=== PATIENT | male | born 1965 | race Caucasian/White ===

== ENCOUNTER 2022-01-04 05:53 | Day surgery (SDC) | payer BC ==
[2021-12-31 09:26] LABS: Absolute Lymphocytes (CBC) 2.5 K/uL (0.7-4.9); Hematocrit 46.9 % (39.6-49.0); Lymphocytes % 33.9 % (15.3-44.8); MPV 7.3 fL (7.6-11.3); RBC Red Blood Cell Count 5.21 M/uL (4.33-5.43)
[2021-12-31 09:46] LABS: Potassium 4.7 mmol/L (3.5-5.1)
[2022-01-04] MEDS ORDERED: CEFAZOLIN SODIUM 1 GM/VIAL ONE (06:00)
[2022-01-04] MEDS ORDERED: NA CHLORIDE 0.9% 50 ML ONE (06:01)
[2022-01-04] MEDS ORDERED: dexAMETHasone 4 MG/ML VIAL ONE (06:35)
[2022-01-04] MEDS ORDERED: FENTANYL CITR 100 MCG/2 ML ONE (06:35)
[2022-01-04] MEDS ORDERED: propofoL 200 MG/20 ML VIAL IV ONE (06:35)
[2022-01-04] MEDS ORDERED: MIDAZOLAM HCL 2 MG/2 ML INJ ONE (06:35)
[2022-01-04] MEDS ORDERED: KETOROLAC 30 MG/ML INJ ONE (06:36)
[2022-01-04] MEDS ORDERED: MORPHINE 10 MG/ML VIAL ONE (06:36)
[2022-01-04] MEDS ORDERED: ONDANSETRON 4 MG/2 ML VIAL ONE (06:36)
[2022-01-04] MEDS ORDERED: LIDOCAINE 1% MPF 5 ML VIAL ONE (06:38)
[2022-01-04] MEDS ORDERED: GLYCOPYRROLATE 0.2 MG/ML SYR ONE (07:20)
[2022-01-04] MEDS ORDERED: HYDROMORPHONE HCL 1 MG/ML INJ ONE (08:14)
[2022-01-04 08:44] VITALS: BP 129/76; TEMP 97.6; O2SAT 97
--- NOTE | 2022-01-04 18:30 | OP ---
Date of Procedure: 01/04/2022 Surgeon: Wyatt Hurley MD Preoperative Diagnosis: Left knee pain with mechanical symptoms, probable meniscal tear or tears. Postoperative Diagnoses: Apparent tearing of the lateral meniscus, which was somewhat surprising to have a portion, which was pinning into the intercondylar notch, but it is definitely consistent with his diagnosis by MRI. He also has mild osteoarthritis of the lateral compartment. Procedure: Left knee arthroscopy with debridement of lateral meniscus. Estimated Blood Loss: Less than 10 cc. Complications: There were no complications. Pathology: No pathology specimen sent. Indications For Operation: Mr. Garrido is a 56-year-old gentleman, who unfortunately has mechanical sy mptoms related to his left knee. 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 Risks, benefit s, and alternatives of the procedure have been discussed with him. He states he understands things a s presented and wished to proceed. Description Of Procedure: The patient was taken to the operating room and placed in supine position. General anesthesia was obtained by the staff. Following this, well-padded tourniquet was placed on superior left thigh. Left lower extremity was then prepped and draped in the usual fashion for the procedure. Following this, a standard superior medial arthroscopy portal was then placed for placeme nt of a drainage needle with scanty rather normal-appearing synovial fluid. This is followed by plac ement of inferolateral arthroscopy portal, which was made atraumatically with 1 pass. The knee was t hen sequentially examined including the suprapatellar pouch, medial and lateral gutters, medial and l ateral compartments as well as notch and patellofemoral joint. Pertinent findings included a little bit of fraying along the medial meniscus as well as, what appeared to be a large radial flap tear of the lateral meniscus, which did appear to be freely mobile and going within the notch. A standard in feromedial arthroscopy portal was then performed and used as a working portal. The medial meniscus w as probed in its entirety. There was a small bit of fraying, which was gently debrided, however no d ominant tear. With regard to the lateral aspect, a combination of shaver and hand instruments were t hen used to debride back the lateral meniscus to a firm hook stable well contoured base. The remaind er of the knee is then again probed and investigated with no further pathology seen, which was amenab le to arthroscopic intervention. After this, the inferior arthroscopy portals were stapled shut. Th e superomedial arthroscopy portal was used for placement of Marcaine with epinephrine and this was th en stapled. The patient was placed in a well-padded sterile dressing, awakened, and taken to the rec overy room in good condition. There were no complications. /ARTEMIO Voice ID: [id number] Report ID: [id number]
== END 2022-01-04 08:57 | disposition home or self-care (01) ==
LOC: OR 05:53
PROVIDERS: ATTEND Orthopaedic Surgery
PROC: 0SBD4ZZ Excision of Left Knee Joint, Percutaneous Endoscopic Approach (ICD-10-PCS; principal; 2022-01-04 07:00)
DX: S83.282A Other tear of lateral meniscus, current injury, left knee, initial encounter (principal); M17.12 Unilateral primary osteoarthritis, left knee; Z20.822 Contact with and (suspected) exposure to COVID-19
CPT/HCPCS: 36415; 80048; 85025; J0690; J1100; J1170; J2250; J2405; J2704; J3010; U0002